=== PATIENT | male | born 1990 | race Caucasian/White ===

== ENCOUNTER 2016-07-18 12:15 | Emergency (ER) | payer OTHER ==
[2016-07-18 12:41] VITALS: BP 140/65
--- NOTE | 2016-07-18 14:09 | UC ---
Skin Complaint HPI - HPI Summary HPI Summary: Pt has hx of allergy and skin eruptions from prior new shirts and red . He does not have asthma or other allergies. - History of Current Complaint Chief Complaint: UCSkin Time Seen by Provider: 07/18/16 13:39 Stated Complaint: SKIN COMPLAINT Hx Obtained From: Patient Onset/Duration: Gradual Onset, Lasting Days Timing: Constant Onset Severity: Mild Current Severity: Moderate Location: Diffuse Character: Raised Aggravating: Nothing Alleviating: Nothing Associated Signs & Symptoms: Positive: Rash. Negative: Nausea, Vomiting, Numbness, Thirst, Diaphoresis, Weakness, Pallor, Shivering, Chills, Cough, Wheezing, Hoarseness, Throat Tightening, Abdominal Pain, Lightheadedness, Tenderness, Red Streaks, Joint Swelling - Allergy/Home Medications Allergies/Adverse Reactions: Allergies Allergy/AdvReac Type Severity Reaction Status Date / Time Red Dye Allergy Hives Verified 07/18/16 12:35 Home Medications: Home Medications Diphenhydramine HCl [Benadryl Allergy 25 MG CAP] 1 tab PO Q6HR PRN 07/18/16 [ History Confirmed 07/18/16] Review of Systems All Other Systems Reviewed And Are Negative: Yes PMH/Surg Hx/FS Hx/Imm Hx Previously Healthy: Yes Endocrine History Of: Denies: Diabetes - Surgical History Surgical History: None Surgery Procedure, Year, and Place: Denies - Family History Known Family History: Negative: Diabetes - Social History Occupation: Employed Full-time Alcohol Use: Weekly Substance Use Type: None Smoking Status (MU): Unknown if Ever Smoked Type: Smokeless Tobacco Physical Exam Triage Information Reviewed: Yes Appearance: Well-Appearing, No Pain Distress, Well-Nourished Vital Signs: Initial Vital Signs Temp 98.4 F 07/18/16 12:37 Pulse 75 07/18/16 12:37 Resp 16 07/18/16 12:37 BP 140/65 07/18/16 12:37 Pulse Ox 100 07/18/16 12:37 Vital Signs Reviewed: Yes Eye Exam: Normal Eyes: Positive: Conjunctiva Clear ENT Exam: Normal ENT: Positive: Normal ENT inspection, Pharynx normal. Negative: Pharyngeal erythema, Nasal congestion, Nasal drainage Neck exam: Normal Neck: Positive: Supple, Nontender Respiratory: Positive: Chest non-tender, Lungs clear, Normal breath sounds, No respiratory distress, No accessory muscle use. Negative: Respiratory distress, Decreased breath sounds, Accessory muscle use, Crackles, Rhonchi, Stridor, Wheezing Cardiovascular: Positive: RRR, No Murmur, Pulses Normal Abdominal Exam: Normal Abdomen Description: Positive: Nontender, No Organomegaly Neurological Exam: Normal Neurological: Positive: Alert, Muscle Tone Normal. Negative: Fatigued, Lethargic, Unresponsive Psychological Exam: Normal Skin Exam: Other - rash fine macular papular diffuse of the trunk sparing hands , neck, scalp, and forearms. Course/Dx - Course Course Of Treatment: this could be viral exanthem versus allergic reaction. This is mainly on the trunk. - Differential Diagnoses - Skin Complaint Differential Diagnoses: Abscess, Allergic Reaction, Anaphylaxis, Angioedema, Cellulitis, Contact Dermatitis, Diabetes, Drug Rash, Drug Intoxication, Eczema, Erythema Multiforme, Impetigo, Local Allergic Reaction, Lymphadenitis, Lymphangitis, MRSA, Poison [place], Poison [place], Scabies, Bradford-Felipe Syndrome, Systemic Illness, Tick Born Illness, Tinea, Urticaria - Diagnoses Provider Diagnoses: macular papular rash of the trunk. Discharge - Discharge Plan Condition: Good Disposition: HOME Prescriptions: predniSONE TAB* [Deltasone TAB*] 20 mg PO DAILY #20 tab Patient Education Materials: Acute Rash (ED) Referrals: Non Staff,Doctor [Primary Care Provider] -
== END 2016-07-18 14:12 | disposition home or self-care (01) ==
LOC: UCCORT 12:15
DX: R21 Rash and other nonspecific skin eruption (principal)
CPT/HCPCS: 99202; G0463

== ENCOUNTER 2017-01-21 19:09 | Emergency (ER) | payer OTHER ==
[2017-01-21 20:03] VITALS: BP 121/84
[2017-01-21] MEDS ORDERED: HYDROcodone/ACETAMIN 5-325 MG* 1 TAB PO ONE (20:56)
[2017-01-21] MEDS ORDERED: Cyclobenzaprine TAB* 10 MG PO ONE (20:57)
--- NOTE | 2017-01-21 21:01 | UC ---
Shoulder Pain HPI - HPI Summary HPI Summary: 26 female presents to [facility] with complaints of left shoulder pain that has been ongoing for years. Patient states his job has been causing his shoulder pain to become worse and exacerbates it. States he has intermittent numbness/tingling and pain radiating from neck to upper extremities. Both front and back of left shoulder. Patient states this has been ongoing since a previous injury. No other complaints or new symptoms. Requesting a light duty work note until seen by specialist/pcp. Has been using icey/hot which gives some relief. Tries taking ibuprofen and tylenol without much relief. No PMHx. - History of Current Complaint Chief Complaint: UCUpperExtremity Stated Complaint: LEFT SHOULDER INJURY Time Seen by Provider: 01/21/17 20:01 Hx Obtained From: Patient Onset/Duration: Gradual Onset, Lasting Weeks, Still Present, Worse Since Timing: Constant Severity Initially: Moderate Severity Currently: Severe Location Of Pain: Is Discrete @ - left shoulder Pain Intensity: 2 Pain Scale Used: 0-10 Numeric Character: Sharp, Aching, Throbbing, Stiffness Aggravating Factor(s): Movement Alleviating Factor(s): Rest, Ice - icey hot Associated Signs And Symptoms: Positive: Numbness/Tingling - intermittent. Negative: Swelling, Redness, Bruising, Fever, Weakness Related History: Dominant Hand Right - Allergies/Home Medications Allergies/Adverse Reactions: Allergies Allergy/AdvReac Type Severity Reaction Status Date / Time Red Dye Allergy Hives Verified 01/21/17 19:50 PMH/Surg Hx/FS Hx/Imm Hx - Additional Past Medical History Additional PMH: Denies HTN, DM and asthma Admits to chronic neck, shoulder and back pain - Surgical History Surgical History: Yes Surgery Procedure, Year, and Place: WISDOM TEETH - Family History Known Family History: Negative: Diabetes - Social History Alcohol Use: Weekly Substance Use Type: None Smoking Status (MU): Never Smoked Tobacco Type: Smokeless Tobacco - Immunization History Most Recent Influenza Vaccination: NOT YET 2017 Vaccination Up to Date: Yes Review of Systems Constitutional: Negative Respiratory: Negative Cardiovascular: Negative Motor: Negative Musculoskeletal: Arthralgia, Decreased ROM - left shoulder, Myalgia Neurological: Paresthesia - LUE All Other Systems Reviewed And Are Negative: Yes Physical Exam Triage Information Reviewed: Yes Appearance: Well-Appearing, No Pain Distress, Well-Nourished Vital Signs: Initial Vital Signs Temp 97.9 F 01/21/17 19:51 Pulse 67 01/21/17 19:51 Resp 16 01/21/17 19:51 BP 121/84 01/21/17 19:51 Pulse Ox 100 01/21/17 19:51 Vital Signs Reviewed: Yes Eyes: Positive: Conjunctiva Clear ENT: Positive: Hearing grossly normal Neck: Positive: Supple, Nontender Respiratory: Positive: Chest non-tender, Lungs clear, Normal breath sounds, No respiratory distress, No accessory muscle use Cardiovascular: Positive: RRR, No Murmur, Pulses Normal - 2+ radial b/l, Brisk Capillary Refill - < 2 seconds Bowel Sounds: Positive: Present Musculoskeletal: Positive: Strength Intact - however painful, ROM Intact - however painful, No Edema, Other: - rest of MSK exam normal Neurological: Positive: Alert - sensation intact, Muscle Tone Normal Skin Exam: Normal Skin: Positive: Other - no crepitus step off or obvious deformity noted no ecchymosis or edema or erythema Shoulder Course/Dx - Course Course Of Treatment: no xray required due to patient having previous injury and no new trauma. appears to be suffering from radiculopathy or muscle strain/ inflammation. will continue ibuprofen with food as needed. norco for breakthrough pain. muscle relaxer to decrease tension and spasms. Heat/ice. Follow up with ortho and PCP. refrain from use until symptoms improve. refused sling. - Differential Dx/Diagnosis Differential Diagnosis/HQI/PQRI: Dislocation, Fracture (Closed), Sprain, Strain , Other - cervical radiculopathy Provider Diagnoses: left shoulder pain chronic on acute Discharge - Discharge Plan Condition: Stable Disposition: HOME Prescriptions: Cyclobenzaprine TAB* [Flexeril 10 MG TAB*] 10 mg PO BEDTIME #10 tab HYDROcodone/ACETAMIN 5-325 MG* [[place] 5-325 TAB*] 1 tab PO Q6H PRN #10 tab MDD 2 PRN Reason: Pain Patient Education Materials: Shoulder Pain (ED) Forms: *Work Release Referrals: Non Staff,Doctor [Primary Care Provider] - Adam Moore MD [Medical Doctor] - Additional Instructions: Take prescribed medication as directed. Do not drive while taking these medications. Ibuprofen for inflammation. Heat/ice. Rest. Continue use of icey/hot. Make an appointment with orthopedics. Follow up with PCP.
== END 2017-01-21 21:17 | disposition home or self-care (01) ==
LOC: UCCORT 19:09
DX: M25.512 Pain in left shoulder (principal); G89.29 Other chronic pain; M54.2 Cervicalgia
CPT/HCPCS: 99213; A9270-GY; G0463

== ENCOUNTER 2018-01-15 13:34 | Emergency (ER) | payer OTHER ==
[2018-01-15 14:51] VITALS: BP 126/74
--- NOTE | 2018-01-15 16:03 | UC ---
Skin Complaint HPI - HPI Summary HPI Summary: 27-year-old otherwise healthy male presents with 4 days of painful red lesion on his left neck. He states he is tried to pop it however has not been able to get anything out. He has soreness in the area but no fevers. He has had a little bit of discomfort in the right anterior chest. He is had mild cough only. - History of Current Complaint Chief Complaint: UCSkin Time Seen by Provider: 01/15/18 14:53 Stated Complaint: INSECT BITE x3 DAYS Hx Obtained From: Patient Pain Intensity: 0 Pain Scale Used: 0-10 Numeric - Allergy/Home Medications Allergies/Adverse Reactions: Allergies Allergy/AdvReac Type Severity Reaction Status Date / Time red dye Allergy Hives Verified 01/15/18 14:43 Review of Systems Constitutional: Negative Skin: Other - Painful lesion Respiratory: Cough Cardiovascular: Chest Pain All Other Systems Reviewed And Are Negative: Yes PMH/Surg Hx/FS Hx/Imm Hx Previously Healthy: Yes - Surgical History Surgical History: Yes Surgery Procedure, Year, and Place: WISDOM TEETH - Family History Known Family History: Negative: Hypertension, Diabetes - Social History Occupation: Employed Full-time Alcohol Use: Weekly Alcohol Amount: 4-5/week Substance Use Type: None Smoking Status (MU): Never Smoked Tobacco Type: Smokeless Tobacco - Immunization History Most Recent Influenza Vaccination: NOT YET 2017 Most Recent Tetanus Shot: unsure Vaccination Up to Date: Yes Physical Exam Triage Information Reviewed: Yes Appearance: Well-Appearing, No Pain Distress, Well-Nourished Vital Signs: Initial Vital Signs Temp 97.9 F 01/15/18 14:45 Pulse 62 01/15/18 14:45 Resp 16 01/15/18 14:45 BP 126/74 01/15/18 14:45 Pulse Ox 99 01/15/18 14:45 Eyes: Positive: Conjunctiva Clear ENT: Positive: Normal ENT inspection Neck exam: Other - 2 small pustules on the right side of the neck at the base of the hair follicle. There is a 1 cm raised erythematous lesion that when squeezed purulence erupts from it. Neck: Positive: No Lymphadenopathy Respiratory: Positive: Chest non-tender, Lungs clear Cardiovascular: Positive: RRR Musculoskeletal Exam: Normal Skin Exam: Other - Skin lesion of the anterior left neck as indicated above Course/Dx - Course Course Of Treatment: Likely folliculitis is turned into a tiny abscess. Patient is encouraged to not shave his neck. The lesion was interrupted here and decompressed. He'll be placed on a short course of antibiotics and is given alcohol swabs to clean the area. Again this did not require a formal incision and drainage. - Diagnoses Provider Diagnoses: Acute folliculitis. Small left frontal neck abscess Discharge - Sign-Out/Discharge Documenting (check all that apply): Patient Departure All imaging exams completed and their final reports reviewed: No Studies - Discharge Plan Condition: Improved Disposition: HOME Prescriptions: Clindamycin Cap(NF) [Clindamycin Cap 300 mg Cap(NF)] 300 mg PO Q6H #12 cap Patient Education Materials: Folliculitis (ED) Referrals: [facility] [Outside] [facility] [Outside] Additional Instructions: Warm compresses to the area. Tylenol, ibuprofen as needed for soreness. Return if worse, new symptoms or other concerns. - Billing Disposition and Condition Condition: IMPROVED Disposition: Home - Attestation Statements Document Initiated by Arnold: No
== END 2018-01-15 15:06 | disposition home or self-care (01) ==
LOC: UCCORT 13:34
DX: L73.9 Follicular disorder, unspecified (principal); L02.11 Cutaneous abscess of neck
CPT/HCPCS: 99212; G0463